=== PATIENT | female | born 1980 | race Caucasian/White ===

== ENCOUNTER 2017-04-25 07:14 | Day surgery (SDC) | payer BC ==
--- NOTE | 2017-04-10 07:49 | HP ---
HISTORY AND PHYSICAL: DATE OF ADMISSION: The patient is scheduled for surgery on 04/25/17. ATTENDING PHYSICIAN: Dr. Sha Wolfe * (DICTATED BY MICHELE GARCIA) CHIEF COMPLAINT: Arteriovenous malformation of the left thigh, admitted for surgical excision. HISTORY OF PRESENT ILLNESS: This is a 36-year-old female who is referred by Dr. Melgar to evaluate an area in the mid thigh on her left leg. 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 Since the age of 13, this has been present and symptomatic. Over the years, this has increased in her symptoms where she feels heaviness, achiness, and numbness medially as well in this region. At one point, she did undergo microphlebectomies, but this did not improve the area; this was several years ago. The appearance of it remained the same as well. She does complain of itching, burning pain in the area of the palpable mass and this is located in the medial aspect of the left thigh. There is also an area just above the knee as well and the other area is more proximal to the groin. On physical exam, she was evaluated by Dr. Wolfe on 05/08/16, pulses were palpated, they are found to be excellent and palpable above and below this region. On auscultation , there was no thrill over this region. On palpation, there is a mass-like effect as if there was a lipoma, again, both above the knee measuring approximately 3 cm in diameter and above more proximal to the groin area, this area measuring 4 cm in diameter. A venous duplex scan was done in the office on that same day, 05/08/16. The common femoral vein, superficial vein revealed no evidence of DVT. The common femoral vein revealed no evidence of pulsatile flow. In the superficial vein and popliteal veins, no evidence of pulsatile flow. The impression on our evaluation was the patient may have a venous malformation surrounded by a lipoma, so the patient was then sent on to have an MRI performed of this region. 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 It does not involve the muscle. It was explained to the patient different options and the treatment of this hemangioma. A surgical treatment would involve a long incision, possibly tissue loss, and an indentation in the area where these lesions will be removed that would be an open surgical treatment. Another option was given to her is going to [place] for CT-guided bleomycin treatment and the final was an observation of this area. It was explained that over the past 20 years, this has been present with not a significant change in size and symptoms. So, the patient considered all of the above and then returned for further discussion in this matter. So, in March 2017, the patient came in to discuss the arteriovenous malformation of low flow, which is present in the medial aspect of her left thigh. She, at this time, would like this to be surgically removed. She is aware of the other options and the possible complications and the presence of the scar present in the medial aspect of her leg and knowing all of this, she wishes to proceed with surgery as explained by Dr. Wolfe. The patient at this time is being admitted to the [facility] to undergo excision of left thigh arteriovenous malformation on 04/25/17. This will be performed by Dr. Wolfe at [facility]. PAST MEDICAL HISTORY: On this patient is significant for endometriosis, she has had 3 surgeries, laparoscopic and laparotomy, the last one being in November 2016 at [place]. She underwent a partial thyroidectomy for benign cysts in 1998; this was on the left side. She had microphlebectomies done in 2001 in [place]. MEDICATIONS: The patient's current medicines, she has environmental allergies and takes Benadryl and Alavert on a p.r.n. basis for her seasonal allergies. She is on medicines on a regular basis. ALLERGIES: She has no known drug allergies. SOCIAL HISTORY: She is . She has 1 child, who is a 3-year-old. She is a commercial painter, works full-time. She is a nonsmoker. No history of alcohol use. REVIEW OF SYSTEMS: She denies any chronic medical disorders. She denies any heart disease, asthma, diabetes, cancer of any kind, all of this is negative. No history of hepatitis. Dr. Melgar is her primary physician. PHYSICAL EXAMINATION VITAL SIGNS: Her height is 5 feet and 7 inches, her weight is 140 pounds, her blood pressure is 113/74, her BMI is 21.9, pulse is 78, and respiratory rate is 18. HEENT: Within normal limits. She does have a well-healed scar from her partial thyroidectomy. NECK: Supple. There is no JVD or carotid bruits. There is no enlarged lymphadenopathy. LUNGS: Clear throughout. HEART: Regular rhythm without a murmur heard. BREASTS: [place] to be normal. There were no masses in either breast. ABDOMEN: Revealed some well-healed scars from previous surgery, but the abdomen is soft and nontender. There are no masses. EXTREMITIES: The left leg reveals 2 areas of fullness on the left leg medially where this arteriovenous malformations are present, one is closer to the knee and one is closer to the groin area, both medially. The patient to palpation in these regions. Pulses in the femoral region and distally to dorsalis pedis, pulses are 2+ and equal bilaterally. NEUROLOGICAL: Strength is 5/5 in upper extremities and lower extremities. She has full range of motion without limitation. She is nonfocal and grossly intact. IMPRESSION: The patient with arteriovenous malformation in the left thigh region in 2 locations, is now admitted for surgical excision. She is undergo excision of left thigh arteriovenous malformations on 04/25/17 to be done by Dr. Wolfe. A prescription for Tylenol No. 3 was sent to her pharmacy [facility] prior to the surgery so this will be available to her postop as needed for pain. MICHELE GARCIA [id number]/[facility] #: [id number] MTDD
[~2017-04-25 07:14] MED LIST: Buffered Lidocaine 0.9% SYRIN* 5 ML/SYR SYRINGE INTRADERM ONE; Dexamethasone IV* 4 MG/ML 1 ML (4 MG) IV SLOW PU ONE; Famotidine IV* 10 MG/ML 2 ML (20 mg) IV ONE
[2017-04-25] MEDS ORDERED: ceFAZolin 2 GM PREMIX (*) 2 GM/50 ML BAG IVPB ONE (07:39)
[2017-04-25] MEDS ORDERED: Dexamethasone IV* 4 MG/ML 1 ML (4 MG) ONE (07:40)
[2017-04-25] MEDS ORDERED: Famotidine IV* 10 MG/ML 2 ML (20 mg) ONE (07:40)
[2017-04-25] MEDS ORDERED: fentaNYL* 50 MCG/ML 2 ML VIAL (100 MCG VIAL) IV PRN (08:36)
[2017-04-25] MEDS ORDERED: HYDROcodone/ACETAMIN 5-325 MG* 1 TAB PO PRN (08:36)
[2017-04-25] MEDS ORDERED: oxyCODONE TAB* 5 MG TAB PO PRN (08:36)
[2017-04-25] MEDS ORDERED: Acetaminophen TAB* 325 MG PO PRN (08:36)
[2017-04-25] MEDS ORDERED: PROCHLORPERAZINE INJ 5 MG/ML 2 ML VIAL IV PRN (08:36)
[2017-04-25] MEDS ORDERED: Lidocaine 1% MPF wEPI 200,000* 30 ML SDV ONE (08:48)
[2017-04-25] MEDS ORDERED: Bupivacaine 0.5% W/EPI SDV* 30 ML VIAL ONE (08:48)
[2017-04-25] MEDS ORDERED: fentaNYL* 50 MCG/ML 2 ML VIAL (100 MCG VIAL) ONE ×2 (08:51→09:42)
[2017-04-25] MEDS ORDERED: Midazolam* 1 MG/ML 2 ML VIAL (2 MG) ONE ×2 (08:51→09:09)
[2017-04-25] MEDS ORDERED: Ondansetron INJ* 2 MG/ML VIAL ONE (09:50)
[2017-04-25] MEDS ORDERED: Propofol* 10 MG/ML 20 ML BTL IV PUSH ONE (10:00)
[2017-04-25] MEDS ORDERED: Lidocaine 2% PF * 5 ML VIAL ONE (10:30)
[2017-04-25] MEDS ORDERED: Lidocaine 2% PF* 10 ML AMP ONE (10:31)
[2017-04-25] MEDS ORDERED: EPINEPHrine AMP 1 MG/ML ONE (10:31)
[2017-04-25 10:38] VITALS: BP 110/69
--- NOTE | 2017-04-25 23:53 | OP ---
OPERATIVE REPORT: DATE OF OPERATION: 04/25/17 - AUDREY DATE OF : 80 SURGEON: Dr. Wolfe. PAPER SUPERVISOR: Susie Caba NP ANESTHESIOLOGIST: Dr. Redd Bashir. ANESTHESIA: Local plus MAC. PRE-OP DIAGNOSIS: Hemangioma of the left leg x2 located on the medial aspect of the left thigh. POST-OP DIAGNOSIS: OPERATIVE PROCEDURE: Excision of left leg venous hemangioma x2. ESTIMATED BLOOD LOSS: Less than 5 cc. INDICATIONS: The patient is a 36-year-old female that has had hemangiomas of the medial aspect of the left thigh. They have been steady and stable for many years; however, they have been getting larger lately and with symptoms directly into the area, specifically discomfort. The areas are located into 2 clusters of what appeared to be low-flow hemangiomas confirmed by ultrasound. There also may be a component of a lipoma in it. The most proximal one measures approximately 6 cm in diameter. The more distal on the medial aspect measures 7 cm in diameter. They are raised in prominence and they are indurated with veins protruding through the skin and showing the venous network on the ultrasound. DESCRIPTION OF PROCEDURE: For this reason, the patient was taken to the procedure room for excision. The patient was marked appropriately. She was placed in a supine position. She underwent sedation. She was prepped and draped in the usual sterile fashion. After this, lidocaine 1% was used to infiltrate in the surrounding area. This was mixed with Marcaine 0.5% with epinephrine and supplemented with tumescent local anesthesia. After this was done and adequate anesthesia was given, it was felt that the upper most area would anatomically be better with the transverse incision after seeing that could be completely excised in the lower incision and up and down incision in order to possibly expand into the bridging area if necessary. For this reason, 2 separate incisions were placed for the different lesions, one transversely the most proximal and one vertical the most distal. After the incisions were created, dissection was carried in the subcutaneous tissue. The veins were intimately attached to the skin and they were taken down by sharp and blunt dissection and the use of the electrocautery for hemostasis. This was then continued to an indurated mass of fatty tissue that appeared to be as an angiolipoma. The areas when excised through the extension that were marked preoperatively and down through the fascia. Hemostasis was accomplished with the electrocautery and after this was completed, an up and down incision was made in the more distal one. There was no evidence of bridging in between the two and for this reason, no need for extension of the incision and the lesion was removed in the same manner and sent as a specimen. After this was done, the areas were checked for hemostasis, controlled with the electrocautery, and checked for more lesions and after this was completed, the incisions were then closed with vertical mattress 3-0 and 4-0 Prolene sutures and a fluff compression dressing that was applied to the left lower extremity and after this , the patient was taken in good conditions to the recovery room. [id number]/[facility] #: [id number] MICAELA
== END 2017-04-25 10:55 | disposition home or self-care (01) ==
LOC: OREAST 07:14
PROVIDERS: ATTEND Surgery
DX: D18.01 Hemangioma of skin and subcutaneous tissue (principal)
CPT/HCPCS: 81025; 88304; J0171; J0690; J1100; J2001; J2250; J2405; J2704; J3010

== ENCOUNTER 2019-01-06 08:18 | Inpatient (IN) | payer BC ==
[2019-01-06] MEDS ORDERED: Lactated Ringers 1000 ML Bag* 1,000 ML IV ONE ×2 (09:33→20:12)
[2019-01-06] MEDS ORDERED: Buffered Lidocaine 1% SYRIN* 1 ML/SYRINGE INTRADERM ONE (09:33)
[2019-01-06 09:55] LABS: ABS Basophils 0.1 10^3/ul (0-0.2); ABS Eosinophils 0.1 10^3/ul (0-0.6); ABS Lymphocytes 1.9 10^3/ul (1.0-4.8); ABS Monocytes 0.5 10^3/ul (0-0.8); ABS Neutrophils 3.4 10^3/ul (1.5-7.7); Eosinophil % 1.6 %; Hematocrit 37 % (35-47); Hemoglobin 12.8 g/dL (12.0-16.0); Lymphocyte % 32.4 %; Mean Corpuscular HGB Conc 35 g/dL (31-36); Mean Corpuscular Hemoglobin 31 pg (27-31); Mean Corpuscular Volume 91 fL (80-97); Mean Platelet Volume 9.4 fL (7.4-10.4); Nucleated Red Blood Cells % 0.1; Platelet Count 147 10^3/uL (150-450); Red Blood Count 4.08 10^6 /uL (3.70-4.87); Red Cell Distribution Width 15 % (10-15)
[2019-01-06] MEDS ORDERED: Oxytocin in LR* 20 UNITS/1,000 ML BAG IVPB SCH (10:00)
[2019-01-06] MEDS: Lactated Ringers 1000 ML Bag* 1,000 ML IV SCH ×2 (10:11→20:43)
[2019-01-06 10:53] LABS: Activated Partial Thrombo Time 30.4 seconds (26.0-38.0); INR 0.96 (0.82-1.09)
[2019-01-06 15:15] LABS: Urine Benzodiazepine Screen None Detected (None Detect); Urine Opiates Screen None Detected (None Detect)
[2019-01-06] MEDS: Calcium Carbonate CHEW TAB* 500 MG (TUMS) PO PRN ×2 (15:34→23:03)
--- NOTE | 2019-01-06 18:07 | HP ---
General Information - Reason for Visit Pt with mono/di twins at 36+3 wks here for labor induction. complicated early on with IUGR of Baby B. Followed frequently and care was transferred to [facility]. Despite concerns, Baby B eventually started growing better and has been in a normal range for the last couple months. Baby A has always been substantially larger. Neither showed signs of TTTS. Recent testing has all been very reassuring. [facility] agreed with plan for delivery at [facility] and had no issue with vaginal delivery if fetuses tolerate labor. Pt has no complaints today. - General Information Maternal Age: 38 Grav: 2 Para: 1 SAB: 0 IEA: 0 Estimated Due Date: 01/31/19 Determined By: LMP Gestational Age in Weeks/Days: 36+3 wks Maternal Blood Type and Rh: A Positive - Results this Serology/RPR Result: Non-Reactive Rubella Result: Immune HBsAg Result: Negative HIV Result: Negative GBS Culture Result: Negative Past Medical History Delivery History: Hx Uncomplicated Vaginal Delivery Pertinent Past Medical History: Non-Contributory Pertinent Past Surgical History: See Records Past Surgical History Comment: Three laparoscopic surgeries, endometriosis and ovarian cysts. AVM in left thigh - Antepartal Records Antepartal Records: Reviewed, Complicated by: - see above Review of Systems Constitutional: Comfortable CV Complaint: No Respiratory: Shortness of Breath: No Gastrointestinal: No Nausea/Vomiting, Normal Bowel Movement Genitourinary: No Dysuria, No Bleeding, No Leaking Fluid Musculoskeletal: No Complaint Neurological: No Headache Movement: Normal - x2 Exam Allergies/Adverse Reactions: Allergies No Known Allergies Allergy (Verified 07/14/18 09:19) normal, afebrile Lab Values - Entire Visit: Laboratory Tests 01/06/19 01/06/19 01/06/19 09:40 09:40 09:40 WBC 6.0 RBC 4.08 Hgb 12.8 Hct 37 MCV 91 MCH 31 MCHC 35 RDW 15 Plt Count 147 L MPV 9.4 Neut % (Auto) 56.1 Lymph % (Auto) 32.4 [place] % (Auto) 8.6 Eos % (Auto) 1.6 Baso % (Auto) 1.3 Absolute Neuts (auto) 3.4 Absolute Lymphs (auto) 1.9 Absolute Monos (auto) 0.5 Absolute Eos (auto) 0.1 Absolute Basos (auto) 0.1 Absolute Nucleated RBC 0.0 Nucleated RBC % 0.1 INR (Anticoag Therapy) 0.96 APTT 30.4 Urine Opiates Screen Ur Barbiturates Screen Ur Phencyclidine Scrn Ur Amphetamines Screen U Benzodiazepines Scrn Urine Cocaine Screen U Cannabinoids Screen Blood Type A Positive Antibody Screen Negative 01/06/19 14:30 WBC RBC Hgb Hct MCV MCH MCHC RDW Plt Count MPV Neut % (Auto) Lymph % (Auto) [place] % (Auto) Eos % (Auto) Baso % (Auto) Absolute Neuts (auto) Absolute Lymphs (auto) Absolute Monos (auto) Absolute Eos (auto) Absolute Basos (auto) Absolute Nucleated RBC Nucleated RBC % INR (Anticoag Therapy) APTT Urine Opiates Screen None detected Ur Barbiturates Screen None detected Ur Phencyclidine Scrn None detected Ur Amphetamines Screen None detected U Benzodiazepines Scrn None detected Urine Cocaine Screen None detected U Cannabinoids Screen None detected Blood Type Antibody Screen - Measurements Height: 5 ft 7.25 in Weight: 186 lb Weight in lbs: 186.623393 Body Mass Index (BMI): 28.9 Pre- Weight: 141 lb Weight Gained This : 45 lbs and 0 ozs - Exam Breast: Breast Exam Deferred CVA: No CVA Tenderness Heart: Normal Rhythm/Heart Sounds HEENT: No Significant Findings Lungs: Clear Bilaterally Rectal: Rectal Exam Deferred - Abdominal Exam Abdomen Exam: Non-Tender, Fundal Height Consistent with Dates - for twins - Ultrasound/Biophysical Profile Ultrasound Status: Bedside Exam - vtx/vtx presentation Targeted Exam Findings Cervical Exam: 3cm Effacement: 50% Station: -2 Presenting Part: Vertex Membrane Status: Intact Bleeding/Discharge: None EFM Findings - External Monitor Findings Baseline Heart Rate: 140 - 150 External Monitor Findings: Accelerations Present, No Pattern of Variable or Late Decelerations, Variability Moderate, Baseline Stable Contractions: None Assessment/Plan - Assessment 36+3 wks with mono/di twins here for induction of labor. Very reassuring status on monitor. Plan pitocin to start contractions and AROM when head has descended sufficiently. Pt plans epidural when she gets uncomfortable. - Obstetrical Risk Factors Obstetrical Risk Factors: - Plan Plan: Induction, Admit - Anticipate Vaginal Delivery - Date/Time of Admission Date of Admission: 01/06/19 Time of Admission: 09:00
[2019-01-06] MEDS ORDERED: OBEPIDURAL* 250 ML EPIDURAL ONE (19:42)
[2019-01-06] MEDS ORDERED: Bupivacaine 0.25% SDV PF* 10 ML VIAL INJ ONE (19:49)
[2019-01-06] MEDS ORDERED: EPHEDrine (Pressors)* 50 MG/ML VIAL IV PUSH PRN (20:12)
[2019-01-06] MEDS ORDERED: Sodium Citrate/Citric Acid* 15 ML UDC PO PRN (20:12)
[2019-01-06] MEDS ORDERED: Phenylephrine 40 MCG/ML SYRINGE IV PUSH PRN (20:12)
[2019-01-06] MEDS ORDERED: Famotidine TAB* 20 MG PO PRN (20:12)
[2019-01-06] MEDS ORDERED: Lidocaine 1.5% EPI 1:200,000* 30 ML SDV ONE ×2 (20:28→23:33)
[2019-01-06] MEDS ORDERED: Lactated Ringers 1000 ML Bag* 1,000 ML IV SCH (21:00)
[2019-01-06] MEDS ORDERED: OBEPIDURAL* 250 ML EPIDURAL SCH (21:00)
[2019-01-07] MEDS: Lactated Ringers 1000 ML Bag* 1,000 ML IV SCH (00:22)
[2019-01-07] MEDS ORDERED: Chloroprocaine 2%* 20 ML VIAL ONE (03:30)
[2019-01-07] MEDS ORDERED: fentaNYL* 50 MCG/ML 2 ML VIAL (100 MCG VIAL) ONE (03:32)
[2019-01-07] MEDS ORDERED: KETAMINE HCL* 50 MG/ML 10 ML VIAL ONE (03:32)
[2019-01-07] MEDS ORDERED: Midazolam* 1 MG/ML 5 ML VIAL (5 MG) ONE (03:32)
[2019-01-07] MEDS ORDERED: Acetaminophen TAB* 325 MG PO PRN (04:11)
[2019-01-07] MEDS ORDERED: Dibucaine 1% 28.35 GM TUBE PR PRN (04:11)
[2019-01-07] MEDS ORDERED: Witch Hazel PAD* JAR TOPICAL PRN (04:11)
--- NOTE | 2019-01-07 04:22 | PROCNOTE ---
[facility] OB: Delivery Note - Delivery A Date of : 01/07/19 Time of : 03:37 [place] Sex: Male Weight at : 5 lb 14 oz Score 1 Minute: 9 Score 5 Minutes: 9 Gestational Age in Weeks and Days at Delivery: 36 Weeks and 4 Days Delivery Method: Spontaneous Vaginal Labor: Induced Did Patient attempt ?: N/A, No Previous Amniotic Fluid: Clear Estimated Blood Loss: 400 Anesthesia/Analgesia: CEI for Labor Anesthesia Comment: [place] Delivered By: Monika Yancey B Date of : 01/07/19 Time of : 03:45 [place] Sex: Male [place] Weight at : 4 lb 1 oz Score 1 Minute: 7 Score 5 Minutes: 9 Gestational Age in Weeks and Days at Delivery: 36 Weeks and 4 Days Delivery Method: Vaginal Breech Labor: Induced Did Patient attempt ?: N/A, No Previous Amniotic Fluid: Clear Anesthesia/Analgesia: CEI for Labor Delivered By: Monika Yancey - Perineum Perineal Injury: 2nd Degree Perineal Repair: By Delivering Practioner - Events Delivery Events of Note: Internal Scalp EKG - Additional Delivery Notes Additional Delivery Notes: Pt with mono/di twins admitted for IOL today at 36+3 wks EGA. Induced with pitocin, then AROM. Received an epidural for anesthesia which was later replaced. She slowly progressed to C/C/+1 and was moved to the OR. Pt pushed extremely well to deliver Baby A, vertex, in a controlled fashion. Shoulders and body delivered easily. placed on mother's abdomen, cord clamped and cut after about a minute. Ultrasound confirmed Baby B was still shimon breech. On palpation, one of the infant's hands was under the presenting part. This was pushed up and it stayed away. FHR noted to be in the 80s. AROM performed, fluid clear. With one push, pt delivered breech. Legs delivered easily. Arms swept down, then head delivered in a flexed position. Baby B very pale initially, but cried shortly after delivery. Cord doubly clamped and cut. Cord blood collected x2. IV pitocin increased. Single placenta delivered spontaneously and intact. On inspection, placental portion for A appeared to be about 2/3 of the disc. Very small 2nd degree perineal lac repaired with 3-0 Vicryl [place] in the usual fashion.
[2019-01-07] MEDS ORDERED: Lactated Ringers 1000 ML Bag* 1,000 ML IV SCH (05:00)
[2019-01-07] MEDS ORDERED: Oxytocin in LR* 20 UNITS/1,000 ML BAG IVPB SCH (05:00)
[2019-01-07] MEDS ORDERED: Lidocaine 1% INJ* 10 MG/ML 30 ML SDV ONE (06:20)
[2019-01-07] MEDS ORDERED: Simethicone TAB* 80 MG TAB.CHEW PO SCH (08:30)
[2019-01-07] MEDS: Docusate CAP* 100 MG PO SCH ×3 (14:57→23:00)
[2019-01-07] MEDS: Ibuprofen TAB* 600 MG PO PRN ×2 (14:57→21:02)
[2019-01-07] MEDS: Ferrous Gluconate TAB* 324 MG TAB PO SCH (23:00)
[2019-01-08 06:17] LABS: ABS Eosinophils 0.1 10^3/ul (0-0.6); ABS Lymphocytes 2.8 10^3/ul (1.0-4.8); ABS Monocytes 0.5 10^3/ul (0-0.8); ABS Neutrophils 4.7 10^3/ul (1.5-7.7); Eosinophil % 1.7 %; Hematocrit 29 % (35-47); Hemoglobin 10.2 g/dL (12.0-16.0); Mean Corpuscular HGB Conc 35 g/dL (31-36); Mean Corpuscular Hemoglobin 33 pg (27-31); Mean Corpuscular Volume 93 fL (80-97); Mean Platelet Volume 9.2 fL (7.4-10.4); Platelet Count 113 10^3/uL (150-450); Red Blood Count 3.12 10^6 /uL (3.70-4.87); Red Cell Distribution Width 15 % (10-15); White Blood Count 8.1 10^3/uL (3.5-10.8)
[2019-01-08] MEDS: Docusate CAP* 100 MG PO SCH ×3 (08:03→21:36)
[2019-01-08] MEDS: Ibuprofen TAB* 600 MG PO PRN ×3 (08:04→21:36)
[2019-01-08] MEDS: Ferrous Gluconate TAB* 324 MG TAB PO SCH (08:05)
[2019-01-09 08:27] VITALS: BP 115/70
[2019-01-09] MEDS: Docusate CAP* 100 MG PO SCH (08:53)
[2019-01-09] MEDS: Ferrous Gluconate TAB* 324 MG TAB PO SCH (08:53)
== END 2019-01-09 15:30 | disposition home or self-care (01) | DRG 560 ==
LOC: MCHOBOUT 08:18 → MCHOB 09:33
PROVIDERS: ADMIT Obstetrics & Gynecology; ATTEND Obstetrics & Gynecology
PROC: 10907ZC Drainage of Amniotic Fluid, Therapeutic from Products of Conception, Via Natural or Artificial Opening (ICD-10-PCS; 2019-01-06)
PROC: 3E033VJ Introduction of Other Hormone into Peripheral Vein, Percutaneous Approach (ICD-10-PCS; 2019-01-06)
PROC: 4A1H7CZ Monitoring of Products of Conception, Cardiac Rate, Via Natural or Artificial Opening (ICD-10-PCS; 2019-01-06)
PROC: 10E0XZZ Delivery of Products of Conception, External Approach (ICD-10-PCS; principal; 2019-01-07)
PROC: 0KQM0ZZ Repair Perineum Muscle, Open Approach (ICD-10-PCS; 2019-01-07)
DX: O30.033 Twin pregnancy, monochorionic/diamniotic, third trimester (principal); Z37.2 Twins, both liveborn; O32.1XX1 Maternal care for breech presentation, fetus 1; O70.1 Second degree perineal laceration during delivery; O90.81 Anemia of the puerperium; Z3A.36 36 weeks gestation of pregnancy
CPT/HCPCS: 36415; 80307; 85025; 85610; 85730; 86850; 86900; 86901; 88307; A9270-GY; J2250; J2400; J3010; J3490